=== PATIENT | female | born 1995 | race American Indian/Alaskan Native ===

== ENCOUNTER 2019-10-29 09:45 | Emergency (ER) | payer OTHER ==
[2019-10-29 09:52] VITALS: BP 128/91
[2019-10-29] MEDS ORDERED: IBUPROFEN 800 MG TAB PO ONE (10:27)
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
== END 2019-10-29 10:51 | disposition home or self-care (01) ==
LOC: ED 09:45
DX: S16.1XXA Strain of muscle, fascia and tendon at neck level, initial encounter (principal); S39.012A Strain of muscle, fascia and tendon of lower back, initial encounter; V89.2XXA Person injured in unspecified motor-vehicle accident, traffic, initial encounter; Y93.89 Activity, other specified; Y92.410 Unspecified street and highway as the place of occurrence of the external cause; Y99.8 Other external cause status
CPT/HCPCS: 99282; 99283